=== PATIENT | female | born 1950 | race Hispanic/Latino ===

== ENCOUNTER → 2020-06-27 | Outpatient (CLI) | payer MEDICARE ==
[~2020-06-27] VITALS: Ht 147.3 cm; Wt 74.4 kg
[~2020-06-27] MED LIST: AMAN100C12 PO; BENZ2TAB10 PO; CA C1TAB93 PO; CHOL100040 PO; ESOM40CA PO; FISH1CAP49 PO; FLAX100030 PO; LOSA25TA41 PO; MECL-184 PO; MULT-1203 PO; REGADENOSON 0.4 MG/5 ML PF SYG IVP SCH; SERT-440 PO; TOLT1TAB13 PO; TOPI50TA24 PO
== END | disposition home or self-care (01) ==
LOC: SHCH 09:16
PROVIDERS: ATTEND Internal Medicine
DX: R07.9 Chest pain, unspecified (principal)
CPT/HCPCS: 78452; 93017; 96374; A9500 ×2; J2785